=== PATIENT | female | born 1980 | race African-American/Black ===

== ENCOUNTER 2020-04-11 13:29 | Emergency (ER) | payer OTHER, MEDICAID ==
[~2020-04-11] VITALS: Ht 172.7 cm; Wt 75.0 kg
[~2020-04-11 13:29] MED LIST: [UNRECOGNIZED DRUG - REMARK]
[2020-04-11] MEDS ORDERED: IBUPROFEN 600MG TABLET PO ONE (14:15)
[2020-04-11 16:06] VITALS: BP 95/60
== END 2020-04-11 16:07 | disposition home or self-care (01) ==
LOC: ER 13:29
DX: S20.211A Contusion of right front wall of thorax, initial encounter (principal); V49.49XA Driver injured in collision with other motor vehicles in traffic accident, initial encounter; Y93.89 Activity, other specified; Y92.89 Other specified places as the place of occurrence of the external cause; Y99.8 Other external cause status; M79.18 Myalgia, other site
CPT/HCPCS: 71045; 99283